=== PATIENT | female | born 1940 | race Caucasian/White ===

== ENCOUNTER 2016-03-10 09:43 | Day surgery (SDC) | payer MEDICARE ==
[~2016-03-10] VITALS: Ht 160 cm; Wt 109.8 kg
[2016-03-10] VITALS (8 sets, daily range): BP systolic 90–173; BP diastolic 56–85; PULSE 58–73; RESP 14–20; O2SAT 94–99
--- NOTE | 2016-03-10 09:19 | PCM.HPANE ---
Patient Data Surgeon Admitting Provider: Attending Provider:Freida Mcrae MD Primary Care Physician:Kadeem Sanchez MD Other Provider:Cy Banegas Anesthesia Reason for Visit Right Kidney Stone Ht/WT & BMI Height (Feet): 5 Height (Inches): 4 Weight (Kilograms): 64.14 Body Mass Index 24.00 Allergies Coded Allergies: oxycodone (Verified Allergy, Mild, itch, 01/13/16) Past Anesthesia History Anesthesia History: Denies:: Anesthesia Reactions, Difficult Intubation, Fam Anesthesia Reaction, Fam Malignant Hypertherm, Malignant Hyperthermia Diabetes History Hx Diabetes?: No MRSA MRSA: No Medications Blood Thinner: Aspirin Hypertension Medication: Yes Home Meds Incl Beta Bindu: Yes Active Scripts Cephalexin (Keflex)500 Mg [id number] Mg PO BID #10 CAPSULE Ref 0 Prov:Hollis Patel DO 01/16/16 Reported Medications Hydrocodone-Acetaminophen 5-325 mg 1 Each Tablet1 Tablet PO TID PRN For Pain Ref 0 01/13/16 Ibuprofen 200 Mg Laovzdq615 Mg PO HS PRN For Pain Ref 0 01/13/16 Garlic 200 Mg Nkcflf220 Mg PO DAILY 01/13/16 Ginkgo Biloba 60 Mg Nlcwisr62 Mg PO DAILY 01/13/16 Cranberry Conc/C/Bacill Coag (Cranberry Tablet)1 Each Tablet2 Each PO DAILY 01/13/16 Ascorbic Acid (Vitamin C)250 Mg Tab.amvr249 Mg PO DAILY #30 TABLET Ref 0 01/13/16 Calcium Carbonate/Vitamin D3 (Calcium 500 + Vit D Caplet)1 Each Tablet1 Each PO DAILY 01/13/16 Multivitamin (Multi Vitamin Daily)1 Each Tablet1 Each PO DAILY 30 Days Ref 0 01/13/16 Docusate Sodium (Colace)100 Mg [id number] Mg PO DAILY PRN For Constipation Ref 0 01/13/16 Aspirin 81 Mg Ssrwbo91 Mg PO DAILY Ref 0 01/13/16 Atorvastatin Calcium 20 Mg Tyqukz25 Mg PO DAILY Ref 0 01/13/16 Losartan Potassium 100 Mg Ozhgde463 Mg PO DAILY 01/13/16 Metoprolol Succinate ER 25 Mg Tab.er.24h25 Mg PO DAILY Ref 0 01/13/16 History History of ENT Problems?: Yes HEENT History: Positive for:: Cataracts Denies:: Difficult Intubation Dysphagia Sinus Problem Hx of Heart Problems?: Yes Cardiovascular History: Positive for:: Hypertension Denies:: AICD Abdominal Aortic Aneurism Atrial Fibrillation Cardiac Surgery Chest Pain Congestive Heart Failure Edema Heart Murmur Irregular Heartbeat Pacemaker Rheumatic Fever Thrombophlebitis Valvular Heart Disease Hx of Respiratory Problem?: No Respiratory History: Denies:: Asthma COPD Chest Surgery Dyspnea Emphysema Hemoptysis Oxygen Administration Pneumonia Tuberculosis Use of C-PAP Machine Hx Neurologic Problems?: No Neurological History: Denies:: Alzheimer's Disease CVA Dementia Dizziness Headaches Multiple Sclerosis Parkinson's Disease Seizures Gastrointestinal History: Positive for:: Diverticulitis (Diverticulosis) Denies:: Cirrhosis Gastroesphageal Reflux Gastrointestinal Bleeding Heartburn Hepatitis Hiatal Hernia Rectal Bleeding Hx of Problems?: Yes Genitourinary History: Positive for:: Kidney Stones (Currently) Urinary Tract Infection Denies:: HX of Hemodialysis HX of Peritoneal Dialysis: No Other Pertinent History: inpt for sepsis - stent placed at that time , Female Hx: Denies:: Currently Endometriosis Pelvic Inflammatory Problems with Breasts? Skin History: Denies:: History Skin Disorders? Pressure Ulcers Hx Musculoskeletal Problems?: Yes Musculoskeletal History: Positive for:: Back Injury Degenerative Joint Joint Replacement (Bilateral knees) Hx of Psycho/Social Problems?: No Psycho Social History: Denies:: Anxiety Bipolar Disorder Hx Depression Suicide Attempt Hx Surgeries?: Yes (appy,choly,elier knees,tubal ligation) Hx Any Other Health Problems?: Yes Other History: Positive for:: Hospitalization (With surgery only) Denies:: Cancer Thyroid Disease History Blood Transfusions: Positive for:: Accept Blood Products? Denies:: Blood Transfusions Hx Diabetes: No Hx Alcohol Use: YesHx Substance Use: No Smoking Status: Never Smoker Have You Smoked inLast 12 mo: No Stop/Bang P-Blood Pressure: treated: Yes B- Body Mass Index > 35 kg/m2: No A- Age over 50: Yes N- Neck Large Circumference: No G- Gender Male: No Risk Assessment Category Category 1A: Patient has history of documented sleep apnea, and HAS NOT received any narcotic, sedative or anesthesia administration during this stay. Category 1B: Patient has history of documented sleep apnea, and HAS received any narcotic , sedative or anesthesia administration during this stay Category 2: Patient has SUSPECTED Obstructive Sleep Apnea, and HAS received any narcotic , sedative or anesthesia administration during this stay. Category 3: Patient has SUSPECTED Obstructive Sleep Apnea and HAS NOT received narcotic, sedative or anesthesia administration during this stay. Category 4: Outpatient in Procedural Areas with known sleep apnea or who screen positive for High Risk via the STOP/BANG questionnaire. Plan Impression Patient chart reviewed, patient interviewed and anesthestic plan with risks, benefits, and alternatives discussed, and informed consent obtained. NPO Status: Appropriate Bernardo Rangel MD Mar 10, 2016 09:19
[~2016-03-10 09:43] MED LIST: ASCO250T7 PO; ASPI-973 PO; ATOR20TA65 PO; CALC-78 PO; CEPH-512 PO; CRAN1TAB5 PO; DOCU-41 PO; GARL200T PO; GINK60CA PO; HYDR-4003 PO; IBUP200C PO; LOSA100T29 PO; Lactated Ringer's 1,000 ML IV SCH; Levofloxacin 500 mg/100 mL D5W IV ONE; METO25TA99 PO; MULT-1018 PO
[2016-03-10] MEDS ORDERED: Ketamine 10 mg/mL 20 mL Inj ONE (09:44)
[2016-03-10] MEDS ORDERED: fentaNYL-PF 50 mCg/mL 2 mL Inj ONE (09:44)
[2016-03-10] MEDS ORDERED: levoFLOXacin 500 mg/100 mL D5W Premix IV ONE (09:56)
[2016-03-10] MEDS ORDERED: Lactated Ringer's 500 ML IV PRN (13:23)
[2016-03-10] MEDS ORDERED: Lactated Ringer's 1,000 ML IV SCH (13:23)
[2016-03-10] MEDS ORDERED: Ondansetron 2 mg/mL 2 mL Inj IVPUSH PRN (13:25)
[2016-03-10] MEDS ORDERED: Phenylephrine 10,000 mCg/mL Inj IVPUSH PRN (13:25)
[2016-03-10] MEDS ORDERED: EPHEDrine Sulfate 50 mg/mL Inj IVPUSH PRN (13:25)
[2016-03-10] MEDS ORDERED: MetoCLOpramide 5 mg/mL 2 mL Inj IVPUSH PRN (13:25)
[2016-03-10] MEDS ORDERED: Dexamethasone 4 mg/mL Inj IVPUSH PRN (13:25)
[2016-03-10] MEDS ORDERED: fentaNYL-PF 50 mCg/mL 2 mL Inj IVPUSH PRN (13:25)
[2016-03-10] MEDS ORDERED: Lactated Ringer's 1,000 ML IV ONE (13:33)
[2016-03-10] MEDS ORDERED: Phenazopyridine 97.5 mg Tablet PO PRN (14:05)
[2016-03-10] MEDS ORDERED: Ondansetron 8 mg ODT Tablet PO PRN (14:05)
[2016-03-10] MEDS ORDERED: HYDROcodone-APAP 5-325 mg Tablet PO PRN (14:05)
--- NOTE | 2016-03-10 15:35 | PCM.ANEP1 ---
Post Anesthesia Phase 1 PACU Phase 1 Assessment Vital Signs Vital Signs Date Time Temp Pulse Resp B/P Pulse Ox O2 Delivery O2 Flow Rate FiO2 03/10/16 15:16 36.7 58 16 154/85 95 Room Air 03/10/16 14:25 60 14 138/72 97 Room Air 03/10/16 14:20 36.8 63 14 128/67 97 Room Air 03/10/16 14:15 64 17 115/59 96 Room Air 03/10/16 14:10 67 18 90/56 95 Room Air 03/10/16 14:05 69 20 114/64 99 Room Air 03/10/16 14:03 36.7 67 20 129/80 99 Simple Mask 8 03/10/16 10:07 36.3 73 16 173/79 94 Room Air Anesthetic Administered: GA Level of Alertness: Awake, talking MCGEE's with Equal Strength: Yes Pain: No Nausea or Vomiting: No Oxygen Delivery: Nasal Cannula Dermatome Level: Full Sensation Bernardo Rangel MD Mar 10, 2016 15:35
--- NOTE | 2016-03-10 15:35 | PCM.ANEP2 ---
Post Anesthesia Evaluation ASA/CMS Post Anesthesia VS in Patient's Normal Range?: Yes Resp Stable; Airway Patent?: Yes CV Function & Hydration Stable: Yes Mental Status Recovered?: Yes Pain control Satisfactory?: Yes N/V Control Satisfactory?: Yes Bernardo Rangel MD Mar 10, 2016 15:35
--- NOTE | 2016-03-10 23:28 | OP ---
[address] [address] OPERATIVE REPORT PATIENT: JOESPH CHAVEZ : 1940 MR#: [id number] ADMIT: 03/10/2016 JOB ID: [id number] DATE OF SURGERY: 03/10/2016 PROCEDURE: 1. Cystoscopy with right-sided double-J stent removal. 2. Right-sided ureteroscopy with basket stone extraction. SURGEON: Freida Mcrae MD. ANESTHESIA: General. PREOPERATIVE DIAGNOSIS(ES): History of right ureteral stone and sepsis as well as nonobstructing right renal calculus, previously stented, treated conservatively medically. Urinary tract infection cleared and presenting for definitive management of her stones. POSTOPERATIVE DIAGNOSIS(ES): History of right ureteral stone and sepsis as well as nonobstructing right renal calculus, previously stented, treated conservatively medically. Urinary tract infection cleared and presenting for definitive management of her stones. INDICATIONS: As above, the patient is a 75-year-old woman with a history of presenting to the emergency department septic and quite sick with urinary tract infection, obstructing right distal small ureteral calculus and a nonobstructing right renal calculus undergoing stenting to temporize and adequately treat presenting for definitive management. PROCEDURE IN DETAIL: After appropriate informed consent was obtained, the patient was brought to the operating room. She received IV antibiotics prior to onset of the procedure. SCDs were placed. Adequate general anesthesia induced. She was carefully placed in dorsal lithotomy position. All pressure points carefully padded. Cleaned, prepped, and draped in usual sterile fashion. Rigid scope was introduced into the patient's bladder. Was noted to be grossly normal in appearance. There was a cystocele present. The distal end of the stent which had some very light incrustation upon it was grasped and brought to the meatus. We were able to get a wire up through the stent into good position with a curl in the renal pelvis fluoroscopically seen. The stent itself was handed off. We then proceeded to change to the semirigid ureteroscope and we were able to easily go up the dilated ureter to near several centimeters below the ureteropelvic junction. No stone was encountered and presumably the stone has passed outside of the stent. We then removed the rigid ureteroscope. We used the safety wire and a dual-lumen catheter placed a second wire, a 14-Swedish diameter access sheath was passed up over this, leaving the other wire outside as a safety wire. We then used the flexible ureteroscope to inspect the entirety of the kidney itself. We found a 3-4 mm stone which was basketed and removed. The remainder of the kidney appeared clear. Ureter was nicely widely dilated. There was minimal bleeding. Thus, we elected to leave the patient stent-free. The ureter itself was cleared again while removing the scope and the bladder itself irrigated out with the cystoscope. A few clots were removed, it was drained and she was awakened and taken in stable condition to the postanesthesia care unit.
[2016-03-17 14:10] LABS: Stone Color Tan (.)
== END 2016-03-10 23:59 | disposition home or self-care (01) ==
LOC: SAS 09:43
PROVIDERS: ATTEND Urology
DX: N20.1 Calculus of ureter (principal); I10 Essential (primary) hypertension; E78.2 Mixed hyperlipidemia; K57.30 Diverticulosis of large intestine without perforation or abscess without bleeding; Z96.651 Presence of right artificial knee joint; Z96.652 Presence of left artificial knee joint; Z79.82 Long term (current) use of aspirin; Z87.440 Personal history of urinary (tract) infections; Z86.19 Personal history of other infectious and parasitic diseases; Z87.442 Personal history of urinary calculi
CPT/HCPCS: 52352; 74420; 82360; J2250; J7120; Q9967